=== PATIENT | female | born 2000 | race Caucasian/White ===

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

== ENCOUNTER 2021-01-01 10:00 | Outpatient (RCR) | payer OTHER, SELFPAY ==
--- NOTE | 2020-09-25 10:07 | HMH.OTOPEV ---
OT Inpatient Evaluation Rehab OT Outpatient Eval Start: 09/25/20 09:57 Freq: Status: Active Protocol: Document 09/25/20 09:57 RMARSHALRobbie (Rec: 09/25/20 10:06 [facility] [id number] Electronically Signed By Cedric Bateman OT 09/25/20 09:57 Outpatient Therapy Subjective History Subjective History Pt is a 19 year old female who reports to therapy for initial evaluation to left shoulder. Pt reports on she dislocated her shoulder when reaching into horizontal abduction. Pt explains she felt pain immediately. Pt had to go to ER for medical attention. As of now she has dislocated the left shoulder 3 -4x's. Pt has a MRI scheduled on October 06. Pt does demonstrated with slight decreased motion and strength. Pt will continue to be seen in order to address all deficits. Chief Complaint Pain,Stiff,Weakness Symptom Type Ache,Throb,Sharp,Dull Symptoms Relieved By Rest/Positioning Symptoms Aggravated By Physical Activity,Lifting Prior Functional Limitations None Current Functional Limitations Reaching,Lifting,Housework, Recreation Activity Symptom Description Intermittent,Activity Dependent Level of pain today (0-10) 0 Pain scale - at its best (0-10) 0 Pain scale - at its worst (0-10) 7 Shoulder/Elbow Eval Shoulder Objective Measurements Shoulder ROM Left Shoulder Abduction Active Range of 115 degrees Motion (degrees) Shoulder Flexion Active Range of Motion 125 degrees (degrees) Query Text: Shoulder External Rotation Active Range 55 degrees of Motion (degrees) Shoulder Internal Rotation Active Range 60 degrees of Motion (degrees) Shoulder MMT Shoulder Abduction Strength Grade 3+ Fair+ Shoulder Extension Strength Grade 4- Good- Shoulder Flexion Strength Grade 4- Good- Shoulder External Rotation Strength 3+ Fair+ Grade Shoulder Internal Rotation Strength 3+ Fair+ Grade Shoulder Strength Patient Testing Sitting Position Elbow Objective Measurements OT Outpatient Assessment Impairments Problems/Impairments Palpation Tenderness,Impaired Range of Tre
--- NOTE | 2020-10-27 10:49 | HMH.RHREAS ---
Rehab Reassessment Rehab OP Re-assessment Start: 10/27/20 10:05 Freq: Status: Active Protocol: Document 10/27/20 10:05 MARBELLA (Rec: 10/27/20 10:49 KELLIE [id number]) Electronically Signed By Cedric Bateman OT 10/27/20 10:05 Rehab Re-assessment Subjective Subjective It's okay today. Objective Objective Notes Pt continues to be seen twice a week for left shoulder deficits. Pt engages in L shoulder AROM, AAROM, and strengthening exercises. Pt does receive modalities in order to decrease pain/ inflammation. Assessment Progress Assessment Progressing as Expected Assessment Notes Pt reports she has pain less often than she was before starting therapy. She also explains her pain is a 4/10 at worst now (improvement). She expresses she feels the shoulder is more stable and she is 40-50% better since starting therapy. She did have a MRI completed at left shoulder with no significant findings. Therapist has been focusing on overall shoulder and scapular strengthening to improve stability. Current AROM L shoulder: Flex: 145 degrees Abd: 145 degrees ER: 75 degrees IR: 65 degrees Patient goals [address]-5 Goals Not Met see below Revised Goals LT-5 Plan Plan Continue with OT plan of care at this time Frequency of Therapy 2x's a week Duration of therapy 4 more weeks Time and Billing Re-Eval Time 10 Re-Eval Billing Units 1 PHYSICIAN CERTIFICATION: I certify the specified therapy services for [facility] are required, authorized, and reviewed every 30 days.
--- NOTE | 2020-11-24 10:59 | HMH.RHREAS ---
Rehab Reassessment Rehab OP Re-assessment Start: 10/27/20 10:05 Freq: Status: Active Protocol: Document 11/24/20 09:55 MARBELLA (Rec: 11/24/20 10:58 MARBELLA [id number]) Electronically Signed By Cedric Bateman OT 11/24/20 09:55 Rehab Re-assessment Subjective Subjective Not too much pain except in a specific direction. Objective Objective Notes Pt continues to be seen twice a week for left shoulder deficits. Pt engages in L shoulder AROM, AAROM, and strengthening exercises. Pt does receive modalities in order to decrease pain/ inflammation. Assessment Progress Assessment Progressing as Expected Assessment Notes Pt reports she feels she has improved significantly since starting therapy. She also explains her pain is a 2/10 at worst now (improvement). She only has pain in horizontal abduction, which is the movement her shoulder dislocated in. She reports she is 75% better since starting therapy. Flex: 160 degrees Abd: 160 degrees ER: 90 degrees IR: 70 degrees Patient goals [address]-5 LT and 4 Goals Not Met see below Revised Goals LT, 3, & 5 Plan Plan Continue with OT plan of care at this time Frequency of Therapy 2x's a week Duration of therapy 4 more weeks Time and Billing Re-Eval Time 10 Re-Eval Billing Units 1 PHYSICIAN CERTIFICATION: I certify the specified therapy services for [facility] are required, authorized, and reviewed every 30 days.
--- NOTE | 2020-12-22 14:54 | HMH.RHREAS ---
Rehab Reassessment Rehab OP Re-assessment Start: 10/27/20 10:05 Freq: Status: Active Protocol: Document 12/22/20 14:03 MARBELLA (Rec: 12/22/20 14:54 MARBELLA [id number]) Electronically Signed By Cedric Bateman OT 12/22/20 14:03 Rehab Re-assessment Subjective Subjective It's still out to the side that bothers me. Objective Objective Notes Pt continues to be seen twice a week for left shoulder deficits. Pt engages in L shoulder AROM, AAROM, and strengthening exercises. Pt does receive modalities in order to decrease pain/ inflammation. Assessment Progress Assessment Progressing as Expected Assessment Notes Pt demonstrates improvement in AROM since last re-assessment . Strengthening has been increased the past 4 weeks. Pt reports continued improvement in pain. She does not have pain as often, except in abduction. When she lowers her arm in abduction there is a popping/crunching sound every time. She reports pain with this. Pt has a follow up with doctor in January. Currently she has started back to college so she may only be able to continue two more weeks of therapy. Flex: 170 degrees Abd: 165 degrees ER: 90 degrees IR: 80 degrees Patient goals [address]-5 LT, 3, 4 & 5 Goals Not Met see below Revised Goals LT Plan Plan Continue with OT plan of care at this time Frequency of Therapy 2x's a week Duration of therapy 4 more weeks Time and Billing Re-Eval Time 10 Re-Eval Billing Units 1 PHYSICIAN CERTIFICATION: I certify the specified therapy services for [facility] are required, authorized, and reviewed every 30 days.
== END 2021-01-01 10:05 | disposition home or self-care (01) ==
LOC: OT 10:00
PROVIDERS: PCP Internal Medicine Adolescent Medicine; Visit Provider Orthopaedic Surgery
DX: M25.312 Other instability, left shoulder (principal)
CPT/HCPCS: 97014; 97110; 97164; 97166; G0283

== ENCOUNTER 2023-09-04 15:30 | Outpatient (CLI) | payer BC, SELFPAY ==
--- NOTE | 2023-09-04 15:38 | XR_ITS ---
FINAL REPORT CLINICAL HISTORY: RIB PAIN FINDINGS: BILATERAL RIBS 3 views were obtained. There is no acute fracture or dislocation. Visualized joint spaces are normally aligned. Soft tissues are unremarkable. IMPRESSION: No acute bony abnormality. Reviewed, Interpreted and Dictated by Bonnie Barajas MD Transcribed by Clarissa Jose Authenticated and [facility]
--- NOTE | 2023-09-04 15:38 | XR_ITS ---
FINAL REPORT CLINICAL HISTORY: RT SIDED RIB PAIN FINDINGS: 2 views of the chest were obtained . The heart is normal in size. The mediastinum is within normal limits. The lungs are clear. There is no pneumothorax. Osseous structures are unremarkable. IMPRESSION: No acute cardiopulmonary process. Reviewed, Interpreted and Dictated by Bonnie Barajas MD Transcribed by Clarissa Jose Authenticated and [facility]
== END 2023-09-04 23:59 | disposition home or self-care (01) ==
PROVIDERS: PCP Internal Medicine Adolescent Medicine; Visit Provider Internal Medicine Adolescent Medicine
DX: R07.81 Pleurodynia (principal)
CPT/HCPCS: 71046; 71111